=== PATIENT | female | born 1955 | race Caucasian/White ===

== ENCOUNTER 2020-01-21 11:58 | Outpatient (CLI) | payer MEDICARE, SELFPAY ==
--- NOTE | ~2020-01-21 | US_ITS ---
EXAMINATION: US carotid duplex BI DATE: 01/21/2020 12:37 INDICATION: Left carotid bruit. TECHNIQUE: Grayscale, color Doppler, and pulsed Doppler images of the cervical carotid arteries were obtained. The degree of vessel stenosis is placed in one of the following categories: normal, <50%, 5 0-69%, >=70% but less than near-occlusion, near-occlusion, or total occlusion. Note that percent sten osis relative to normal distal artery lumen diameter is indirectly measured from velocity measurement s as described by Akin, et al. Radiology 2003; 229:340-346. COMPARISON: Ultrasound 07/19/2016 FINDINGS: RIGHT: The right common carotid artery (CCA) peak systolic velocity (PSV) is 70 cm/s. The right internal car otid artery (ICA) PSV is 51 cm/s. The right ICA end-diastolic velocity (EDV) is 18 cm/s. The right IC A/CCA PSV ratio is 0.7. Grayscale and color Doppler images yield an estimate of <50% diameter reducti on from plaque in the ICA. There is antegrade flow in the right vertebral artery. LEFT: The left CCA PSV is 94 cm/s. The left ICA PSV is 52 cm/s. The left ICA EDV is 17 cm/s. The left ICA/C CA PSV ratio is 0.6. Grayscale and color Doppler images yield an estimate of <50% diameter reduction from plaque in the ICA. There is antegrade flow in the left vertebral artery. IMPRESSION: 1. <50% stenosis in the right internal carotid artery. 2. <50% stenosis in the left internal carotid artery. Reviewed, dictated and finalized at location A. [employer]
== END 2020-01-21 11:59 | disposition home or self-care (01) ==
LOC: ANHIMG 12:05
PROVIDERS: PCP Emergency Medicine; Visit Provider Emergency Medicine
DX: R09.89 Other specified symptoms and signs involving the circulatory and respiratory systems (principal); I65.23 Occlusion and stenosis of bilateral carotid arteries
CPT/HCPCS: 93880

== ENCOUNTER 2020-10-25 08:41 | Outpatient (NON) | payer MEDICARE, SELFPAY ==
[2020-10-25 18:53] LABS: SARS-CoV-2 RNA PCR Negative
== END 2020-10-25 08:42 ==
PROVIDERS: PCP Emergency Medicine; Visit Provider Emergency Medicine
DX: R50.9 Fever, unspecified (principal); Z20.828 Contact with and (suspected) exposure to other viral communicable diseases
CPT/HCPCS: 87635; C9803; U0003

== ENCOUNTER 2021-06-06 10:25 | Emergency (ER) | payer MEDICARE, SELFPAY ==
--- NOTE | ~2021-06-06 | XR_ITS ---
EXAMINATION: XR tibia fibula LT 2V INDICATION: Left lower leg and foot swelling TECHNIQUE: Two views of the left tibia and fibula are obtained. COMPARISON: None available FINDINGS: There is widespread soft tissue calcification of the leg. The bones are osteopenic which li mits the sensitivity for fracture however none is seen. There is soft tissue swelling surrounding the ankle. IMPRESSION: 1. Ankle soft tissue swelling without acute osseous abnormality identified, sensitivity limited by os teopenia. Reviewed, dictated and finalized at location B. IMPRESSION: 1. Ankle soft tissue swelling without acute osseous abnormality identified, sen sitivity limited by osteopenia.
--- NOTE | ~2021-06-06 | XR_ITS ---
EXAMINATION: XR foot LT min 3V DATE: 06/06/2021 11:06 INDICATION: Left foot swelling TECHNIQUE: Dorsoplantar, lateral, and 2 oblique views of the left foot were obtained. COMPARISON: None. FINDINGS: There is soft tissue swelling of the foot and ankle. The bones are osteopenic which limits the sensitivity for fracture however none is seen. There appears to be an old healed fracture of the fifth metatarsal shaft. Mild polyarticular osteoarthritis is noted. IMPRESSION: 1. Foot and ankle soft tissue swelling without acute osseous abnormality identified, sensitivity limi efren by osteopenia. Reviewed, dictated and finalized at location B. IMPRESSION: 1. Foot and ankle soft tissue swelling without acute osseous abnormality identi fied, sensitivity limited by osteopenia.
[2021-06-06 10:39] VITALS: BP 130/66; PULSE 96; RESP 18; TEMP 36.4; O2SAT 98
--- NOTE | 2021-06-06 10:58 | ED.GENADULT ---
HPI - General Adult General Chief complaint: Extremity Injury, Lower Stated complaint: left foot Time Seen by Provider: 06/06/21 10:45 Source: patient and RN notes reviewed Mode of arrival: ambulatory (with walker) Limitations: no limitations History of Present Illness HPI narrative: 66-year-old female presents with complaints of redness, warmth, tenderness, and swelling to left lower leg and foot for the past 7 days. ?Pamella reports increasing redness, swelling, and pain over the past 48-72 hours. ?Unable to see PMD today. ?Clean area without relief. Denies radiation of tenderness, redness, or swelling. ?Exacerbating factors consist of open areas throughout the foot. Open areas with intermittent drainage. Denies fever or chills. ?Denies nausea, vomiting, and abdominal pain. Tolerating liquids well. ?Remains active. ?The patient reports she has not been diagnosed with COVID-19. ?The patient reports she is not waiting for the results of a COVID-19 lab test. The patient reports she does not have weakness, fatigue, or myalgia. ?The patient reports she does not have a new or worsening cough or shortness of breath. ?The patient reports she does not have any rhinorrhea, congestion, loss of taste, sore throat, and diarrhea. ?Denies recent traveling. Denies concerns for COVID-19 or exposures. ?At this time, the patient is not suspected of having COVID-19. Some parts of this dictation were generated by voice recognition software and may contain typographical and/or grammatical inaccuracies. Related Data Home Medications Medication Instructions Recorded Confirmed cholecalciferol (vitamin D3) 50 2,000 unit PO DAILY 10/03/19 06/13/21 mcg (2,000 unit) capsule cyanocobalamin (vitamin B-12) 1,000 mcg PO DAILY 10/03/19 06/13/21 1,000 mcg tablet atorvastatin 20 mg PO DAILY 06/06/21 06/13/21 duloxetine 60 mg PO DAILY 06/06/21 06/13/21 levothyroxine 25 mcg PO DAILY 06/06/21 06/13/21 metoprolol succinate 25 mg PO DAILY 06/06/21 06/13/21 mirtazapine 15 mg PO DAILY 06/06/21 06/13/21 pantoprazole 40 mg PO DAILY 06/06/21 06/13/21 aspirin 81 mg PO DAILY 06/13/21 06/13/21 escitalopram oxalate 10 mg PO DAILY 06/13/21 06/13/21 mupirocin 1 applic TOPICAL BID 06/13/21 06/13/21 Allergies Allergy/AdvReac Type Severity Reaction Status Date / Time hydromorphone Allergy Intermediate Confusion Verified 06/12/21 21:32 Review of Systems Review of Systems: Narrative: CONSTITUTIONAL: Denies fever, chills, sweats. EYES: Denies visual changes, redness, discharge. ENT: Denies rhinorrhea, congestion, sore throat, otalgia. CARDIOVASCULAR: Denies chest pain, palpitations, edema. RESPIRATORY: Denies dyspnea, wheezing, cough. GASTROINTESTINAL: Denies abdominal pain, nausea, vomiting, diarrhea. GENITOURINARY: Denies dysuria, hematuria, abnormal discharge. SKIN: Complaints of redness, swelling, warmth, tenderness, open area, and intermittent drainage to left lower leg and foot. MUSCULOSKELETAL: Denies acute back pain, joint pain, or myalgia. NEUROLOGIC: Denies numbness or focal weakness. PSYCHIATRIC: Denies anxiety or depression. All systems reviewed & are unremarkable except as noted in HPI and below. [facility] Past Medical History Medical History Bilateral carotid bruits CVA (cerebral vascular accident) X3 Depression GERD (gastroesophageal reflux disease) HLD (hyperlipidemia) HTN (hypertension) Hypothyroidism (acquired) Insomnia Obese Post-menopausal Sarcoidosis Sarcoidosis of central nervous system Tachycardia Vitamin D deficiency Surgical History Surgical History History of cholecystectomy History of gastric bypass Family History Family History Father Family history of cardiovascular disease, Onset Age: 78 Mother Carcinoma of colon, Onset Age: 41
== END 2021-06-06 12:02 | disposition home or self-care (01) ==
PROVIDERS: Emergency Provider Nurse Practitioner Family; PCP Emergency Medicine
DX: L03.116 Cellulitis of left lower limb (principal); L03.032 Cellulitis of left toe; Z86.73 Personal history of transient ischemic attack (TIA), and cerebral infarction without residual deficits; F32.9 Major depressive disorder, single episode, unspecified; E78.5 Hyperlipidemia, unspecified; I10 Essential (primary) hypertension; E03.9 Hypothyroidism, unspecified; E66.9 Obesity, unspecified; Z68.30 Body mass index [BMI] 30.0-30.9, adult; Z95.1 Presence of aortocoronary bypass graft
CPT/HCPCS: 73590; 73630; 99214; G0463

== ENCOUNTER 2021-06-12 21:15 | Observation (INO) | payer MEDICARE, SELFPAY ==
--- NOTE | ~2021-06-12 | XR_ITS ---
EXAMINATION: XR chest 1V 06/12/2021 22:28 INDICATION: Status post fall. Facial droop. History of CVA. PROCEDURE: PA and lateral views of the chest COMPARISON: 07/18/2016 FINDINGS: The lungs are clear. The cardiomediastinal silhouette is within normal limits. There are no pleural effusions. There is no pneumothorax suspected. IMPRESSION: 1: NO ACUTE CARDIOPULMONARY DISEASE. Reviewed, dictated and finalized at location A.
--- NOTE | ~2021-06-12 | CT_ITS ---
EXAMINATION: CT brain wo con DATE: 06/12/2021 22:04 INDICATION: Aphasia. Facial droop. TECHNIQUE: Computed tomography (CT) of the head was performed without intravenous contrast. The dose- length product was 605.33 mGy-cm. COMPARISON: CT dated 07/18/2016 FINDINGS: Generalized atrophy. Chronic left frontal lobe infarction with encephalomalacia. Chronic ri ght lacunar and bilateral cerebellar infarctions. No ventriculomegaly or midline shift. Basilar ciste rns are patent. There are scattered mild periventricular and subcortical white matter changes, most l ikely related to small vessel ischemic disease (microangiopathy). There is intracranial atheroscleros is. Paranasal sinuses and mastoids are pneumatized. IMPRESSION: 1. No acute intracranial abnormality. 2: Chronic left frontal lobe, right lacunar and bilateral cerebellar infarctions. Reviewed, dictated and finalized at location A. IMPRESSION: 1. No acute intracranial abnormality. 2: Chronic left frontal lobe, right lacunar and bilateral cerebellar infarctio ns.
--- NOTE | ~2021-06-12 | XR_ITS ---
XR shoulder RT min 2V 06/12/2021 22:29 Indication: Right shoulder pain Procedure: 5 views of the right shoulder Comparison: No prior studies for comparison. Findings: There is polyarticular osteoarthritis. Osteopenia. There is probable rotator cuff tear. No acute fracture or traumatic malalignment. Visualized lung parenchyma is unremarkable. Impression: 1: No acute cardiopulmonary disease. Reviewed, dictated and finalized at location A. Impression: 1: No acute cardiopulmonary disease.
--- NOTE | ~2021-06-12 | US_ITS ---
EXAMINATION: US carotid duplex BI DATE: 06/14/2021 09:42 INDICATION: CVA protocol TECHNIQUE: Grayscale, color Doppler, and pulsed Doppler images of the cervical carotid arteries were obtained. The degree of vessel stenosis is placed in one of the following categories: normal, <50%, 5 0-69%, >=70% but less than near-occlusion, near-occlusion, or total occlusion. Note that percent sten osis relative to normal distal artery lumen diameter is indirectly measured from velocity measurement s as described by Akin, et al. Radiology 2003; 229:340-346. Notes: Normal: Peak systolic velocity <125 centimeters/sec and no plaque <50%. Peak systolic velocity <125 ( EDV <40; ICA/CCA PSV ratio <2.0; used these factors only a tandem lesions or low cardiac output or co ntralateral disease) 50-69 %: PSV 125-230 (EDV 40-100; ratio 2-4) >= 70% but less than near occlusion: PSV greater than 230 (EDV > 100; ratio> 4.0) Near Occlusion: PSV that is variable; markedly narrowed lumen Occlusion: Absent flow on color/spectral Doppler and no lumen on andrews scale. COMPARISON: None. FINDINGS: RIGHT: The right common carotid artery (CCA) peak systolic velocity (PSV) is 72 cm/s. The right internal car otid artery (ICA) PSV is 64 cm/s. The right ICA end-diastolic velocity (EDV) is 24 cm/s. The right IC A/CCA PSV ratio is 0.9. The external carotid artery (ECA) PSV is 72 cm/s. There is antegrade flow in the right vertebral artery. LEFT: The left CCA PSV is 86 cm/s. The left ICA PSV is 70 cm/s. The left ICA EDV is 22 cm/s. The left ICA/C CA PSV ratio is 0.8. The ECA PSV is 60 cm/s. There is antegrade flow in the left vertebral artery. IMPRESSION: 1. Less than 50% stenosis in the right internal carotid artery by sonographic criteria. 2. Less than 50% stenosis in the left internal carotid artery by sonographic criteria. Reviewed, dictated and finalized at location A. IMPRESSION: 1. Less than 50% stenosis in the right internal carotid artery by sonographic michael middleton. 2. Less than 50% stenosis in the left internal carotid artery by sonographic gia brandon.
--- NOTE | ~2021-06-12 | MR_ITS ---
EXAMINATION: MR brain/brain stem wo con EXAM DATE: 06/13/2021 13:17 INDICATION: Aphrasia, facial droop. TECHNIQUE: Magnetic resonance imaging (MRI) of the brain/brain stem obtained without contrast. Tristin al T1, axial diffusion, gradient echo (T2*), T1, T2, FLAIR sequences obtained. Comparison is made to prior examination from 07/19/2016. FINDINGS: Expected evolution of previously seen moderate sized left frontal lobe infarction. There is small old left cerebellar infarction and punctate old right basal ganglia lacunar infarction. There are no areas of restricted diffusion to suggest acute infarction. There is no acute hemorrhage seen on the T2*, a hemosiderin sensitive sequence. No intraparenchymal brain mass. The ventricles a re normal in size. There are no extra-axial collections. Flow voids are seen in the cerebral arteri es on the T2-weighted sequences consistent with their expected patency. Patient has had bilateral oc ular lens surgery. Soft tissue is unremarkable. IMPRESSION: 1. No acute intracranial findings. 2. Old infarctions, largest in the left frontal lobe. Reviewed, dictated and finalized at location B.
[2021-06-12 21:23] VITALS: BP 140/92; PULSE 78; RESP 18; TEMP 36.6; O2SAT 95
--- NOTE | 2021-06-12 21:49 | ECG_ITS ---
Measurements Intervals [place] Rate: 80 P: 34 NE: 169 QRS: -20 QRSD: 97 T: 8 QT: 381 QTc: 441 Interpretive Statements SINUS RHYTHM VENTRICULAR PREMATURE COMPLEX DELAYED PRECORDIAL R/S TRANSITION VOLTAGE CRITERIA FOR LVH BORDERLINE T WAVE ABNORMALITY- INFERIOR LEADS BASELINE WANDER- V4 BORDERLINE ECG Electronically Signed On 06-13-2021 8:06:21 CDT by René Lees D.O.
--- NOTE | 2021-06-12 21:52 | ED.FALL ---
HPI - Fall General Chief Complaint: Fall Stated Complaint: ground level fall/ facial droop Time Seen by Provider: 06/12/21 21:27 Source: patient and RN notes reviewed Mode of arrival: EMS Limitations: other History of Present Illness HPI Narrative: This is a 66 year old female with history of multiple CVA with residual aphasia who presents for evaluation of a fall. She states she was trying to walk from her chair to her table. She was turning around when she fell for now reason. She was able to get back in her chair. She thinks she may have hit her head but denies LOC. She denies dizziness, nausea, vomiting, focal weakness, numbness tingling, headache, chest pain, sob, abdominal pain. EMS thought patient has mild right facial droop. Patient reports she normally walks with walker. She is currently on antibiotics for chronic left leg wound with chronic cellulitis. She was prescribed clindamycin 3 days ago. Related Data Home Medications Medication Instructions Recorded Confirmed cholecalciferol (vitamin D3) 50 2,000 unit PO DAILY 10/03/19 06/13/21 mcg (2,000 unit) capsule cyanocobalamin (vitamin B-12) 1,000 mcg PO DAILY 10/03/19 06/13/21 1,000 mcg tablet atorvastatin 20 mg PO DAILY 06/06/21 06/13/21 duloxetine 60 mg PO DAILY 06/06/21 06/13/21 levothyroxine 25 mcg PO DAILY 06/06/21 06/13/21 metoprolol succinate 25 mg PO DAILY 06/06/21 06/13/21 mirtazapine 15 mg PO DAILY 06/06/21 06/13/21 pantoprazole 40 mg PO DAILY 06/06/21 06/13/21 aspirin 81 mg PO DAILY 06/13/21 06/13/21 escitalopram oxalate 10 mg PO DAILY 06/13/21 06/13/21 mupirocin 1 applic TOPICAL BID 06/13/21 06/13/21 Allergies Allergy/AdvReac Type Severity Reaction Status Date / Time hydromorphone Allergy Intermediate Confusion Verified 06/12/21 21:32 Review of Systems Review of Systems: All systems reviewed & are unremarkable except as noted in HPI and below [facility] Past Medical History Medical History (Updated 06/13/21 @ 07:33 by Bessy Marrero MD) Bilateral carotid bruits CVA (cerebral vascular accident) X3 Depression GERD (gastroesophageal reflux disease) HLD (hyperlipidemia) HTN (hypertension) Hypothyroidism (acquired) Insomnia Obese Post-menopausal Sarcoidosis Tachycardia Vitamin D deficiency Surgical History Surgical History History of cholecystectomy History of gastric bypass Family History Family History Father Family history of cardiovascular disease, Onset Age: 78 Mother Carcinoma of colon, Onset Age: 41 Social History Social History (Updated 06/13/21 @ 05:54 by Irina Pagan DO) Social History: Primary care physician: Dr. Vicky Louise Code status: full code healthcare power of collections attorney: Chad Beard Smoking status: Never smoker Second hand tobacco smoke exposure: Yes Alcohol intake: former Substance use: never Additional living arrangements comments: She is and lives alone. Her daughter comes and checks on her frequently. She ambulates with a walker. 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 Gender identity (if verbalized by the patient): Female Spiritual care concerns: No Exam Const: General: no acute distress Orientation/consciousness: patient oriented x3 HENMT: Head: normocephalic Face and sinus: normal facial exam, sinuses nontender and face symmetric Mouth: Yes lip normal, Yes oropharynx normal and Yes dry mucous membranes Eyes: Pupils: Equal, round and reactive pupils present EOM: EOMs intact bilaterally Neck: Neck: normal visual inspection Chest: Chest palpation & inspection: normal inspection of the chest Resp: Effort & Inspection: normal respiratory effort and no retractions Auscultation: clear to auscultation bilaterally Cardio: Rate: regular
[2021-06-12 22:41] LABS: Basophils Absolute Auto 0.1 K/mm3 (0.0-0.1); Basophils Percent Auto 0.4 % (0.2-1.2); Eosinophils Absolute Auto 0.2 K/mm3 (0-0.3); Eosinophils Percent Auto 1.3 % (0-4.4); Hematocrit 34.1 % (37.0-47.0); Hemoglobin 10.2 g/dL (12.0-15.0); Immature Granulocyte Absolute 0.15 K/mm3 (0.00-0.031); Immature Granulocyte Percent A 1.2 % (0-0.5); Lymphocytes Absolute Auto 2.44 K/mm3 (0.9-3.2); Lymphocytes Percent Auto 19.3 % (18.3-44.2); Mean Corpuscular HGB Conc 29.9 g/dl (32-36); Mean Corpuscular Hemoglobin 27.2 pg (26-34); Mean Corpuscular Volume 90.9 fl (80-100); Mean Platelet Volume 9.7 fl (7.4-10.4); Monocytes Absolute Auto 0.7 K/mm3 (0.1-0.6); Monocytes Percent Auto 5.7 % (2.6-8.5); Neutrophils Absolute Auto 9.1 K/mm3 (1.3-6.7); Neutrophils Percent Auto 72.1 % (45.5-73.1); Platelet Count Result 280 k/mm3 (150-375); Red Blood Count 3.75 M/mm3 (4.2-5.4); Red Cell Distribution Width 17.3 % (11.5-14.5); White Blood Count 12.6 K/mm3 (4.5-10.0)
[2021-06-12 22:46] LABS: Alanine Aminotransferase 14 U/L (4-35); Albumin Level 3.5 g/dL (3.5-5.1); Alkaline Phosphatase 112 U/L (38-126); Anion Gap 7 mmol/L (8-16); Aspartate Amino Transferase 35 U/L (14-36); Bilirubin,Total 0.5 mg/dL (0.2-1.3); Blood Urea Nitrogen 18 mg/dL (7-17); Calcium 9.2 mg/dL (8.4-10.2); Carbon Dioxide 24 mmol/L (22-30); Chloride 109 mmol/L (98-107); Estimated CRCL calculation 53 ml/min; Estimated Glomerular Filt Rate > 60; Glucose 96 mg/dL (65-110); Sodium 140 mmol/L (137-145)
[2021-06-12 22:47] LABS: Partial Thromboplastin Time 27.8 SECONDS (22.3-36.8); Prothrombin Time 12.9 Seconds (11.1-14.7)
[2021-06-12 22:48] VITALS: BP 156/86; PULSE 81
[2021-06-12 22:49] VITALS: BP 167/97; PULSE 84
[2021-06-12 23:02] LABS: Platelet Estimate Adequate (Adequate)
[2021-06-12 23:03] LABS: Hypochromasia 1+ (NORMAL)
[2021-06-12 23:42] LABS: Add Urine Microscopic? YES; Appearance Urine Clear (Clear); Bacteria Urine Trace /hpf; Bilirubin Urine Negative (Negative); Color Urine Yellow (Yellow); Glucose Urine UA Negative (Negative); Ketones Urine Negative (Negative); Leukocyte Esterase Ur 3+ LEU/UL (Negative); Mucus Urine Rare /lpf; Nitrate Urine Negative (Negative); Protein Urine Negative (Negative); Specific Grav Ur 1.016 (1.001-1.035); Squamous Epithelial Cell Urine Few /hpf (Few); Transitional Epi Cells Urine Rare /hpf (None Seen); Urobilinogen Urine Negative mg/dL (<2.0); WBC Urine 31-50 /hpf
[2021-06-12 23:50] LABS: Blood Urine Negative (Negative)
[2021-06-12 23:54] VITALS: BP 139/87; PULSE 73; O2SAT 99
[2021-06-13] VITALS (10 sets, daily range): BP systolic 102–119; BP diastolic 60–71; PULSE 69–99; RESP 14–18; TEMP 36–36.6; O2SAT 96–100; BMI 30.1
--- NOTE | 2021-06-13 02:56 | ADMGEN ---
This patient, Pamella Wu, was admitted to Medical Room 250-01. Patient/family oriented to hospital policies and general routines including ID bracelet, bed and alarms, visiting hours, pain management, procedures, bathroom and other care routines, personal items, smoking policy, room service/diet, and visiting hours. Information on how to activate the Rapid Response Team has been discussed. Patient/Family are encouraged to report perceived risks to care and to ask questions if they do not understand what they are told or what they should do.
--- NOTE | 2021-06-13 05:33 | PM.IMHP ---
H&P: HPI History of Present Illness Date/Time: 06/13/21 05:33 Chief Complaint: Facial droop Narrative: history was difficult to obtain given the patient's expressive aphasia. according to a compilation of sources this 66-year-old female with history of multiple strokes, hypertension and chronic leg wounds presented to the ER after having some facial droop. The patient's daughter usually cares for the patient But she is out of town. The patient's brother spoke to the patient around 1:00 p.m. and the patient was fine. When the daughter spoke to the patient around 5:00 p.m. she was having difficulty verbalizing more than usual and was having some right facial droop. The initial call out from EMS was that the patient had had a fall. It is unclear if the patient actually had a fall or not. Either way the patient had a noncontrast CT of Head in the ER which demonstrated no acute process. she denies any headache or visual changes. She actually denies having more expressive aphasia than usual when I am talking to her. She has no facial droop at the time of my evaluation. She denies having had any episodes of confusion. She denies focal weakness numbness or tingling. In the ER she had a UA which demonstrated 3+ esterase and trace bacteria. She denies any dysuria, hematuria, increased urinary urgency or frequency. She has erythema and warmth to her left lower extremity. She reports that her extremity is slightly more red than usual and more swollen. She states that she has had a boot on her foot for the last week. She had been prescribed clindamycin by care provider on the it is unclear if she actually picked up the antibiotics at that time but she had the clindamycin again prescribed on the . She has received at least 3 days of clindamycin. obtaining history was difficult due to the patient's expressive aphasia. Review of Systems Review of Systems: Narrative: 12 systems were reviewed with pertinent positives and negatives per HPI. Except as documented in the HPI, all other systems were reviewed and are negative. [facility] Past Medical History Medical History (Updated 06/13/21 @ 06:01 by Irina Pagan DO) Bilateral carotid bruits CVA (cerebral vascular accident) X3 Depression GERD (gastroesophageal reflux disease) HLD (hyperlipidemia) HTN (hypertension) Hypothyroidism (acquired) Insomnia Obese Post-menopausal Sarcoidosis Tachycardia Vitamin D deficiency Surgical History Surgical History History of cholecystectomy History of gastric bypass Family History Family History Father Family history of cardiovascular disease, Onset Age: 78 Mother Carcinoma of colon, Onset Age: 41 Social History Social History (Updated 06/13/21 @ 05:54 by Irina Pagan DO) Social History: Primary care physician: Dr. Vicky Louise Code status: full code healthcare power of machine operator farmworker: Chad Beard Smoking status: Never smoker Second hand tobacco smoke exposure: Yes Alcohol intake: former Substance use: never Additional living arrangements comments: She is and lives alone. Her daughter comes and checks on her frequently. She ambulates with a walker. 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
[2021-06-13] MEDS: LEVOTHYROXINE SODIUM 25 MCG TABLET PO (06:08)
[2021-06-13] MEDS: ATORVASTATIN 20 MG TABLET PO (08:31)
[2021-06-13] MEDS: DULoxetine HCL 60 MG CAPSULE.DR PO (08:31)
[2021-06-13] MEDS: ASPIRIN 81 MG ENTERIC TABLET PO (08:31)
[2021-06-13] MEDS: CYANOCOBALAMIN 1,000 MCG TABLET 1000 MCG PO (08:31)
[2021-06-13] MEDS: CHOLECALCIFEROL 1,000 UNITS TABLET 2000 UNITS PO (08:31)
[2021-06-13] MEDS: ESCITALOPRAM OXALATE 10 MG TABLET PO (08:31)
[2021-06-13] MEDS: CLOPIDOGREL BISULFATE 75 MG TABLET PO (08:31)
[2021-06-13] MEDS: PANTOPRAZOLE 40 MG TABLET PO (08:32)
[2021-06-13] MEDS: MIRTAZAPINE 15 MG TABLET PO (08:32)
[2021-06-13] MEDS: METOPROLOL SUCCINATE EXT REL 25 MG TABCR PO (08:32)
[2021-06-13] MEDS: MUPIROCIN 2% OINT 22 GM TUBE 1 APPLIC TOPICAL ×2 (08:33→18:28)
--- NOTE | 2021-06-13 17:15 | PM.IMPN ---
Progress Note: A&P Assessment and Plan (1) CVA (cerebral vascular accident): Qualifiers: CVA mechanism: unspecified Qualified Code(s): I63.9 - Cerebral infarction, unspecified Code(s): I63.9 - Cerebral infarction, unspecified Status: Acute Assessment and Plan: the patient may have had a recurrent CVA. MRI of the brain in a.m. No acute findings, old infarctions largest in the left frontal lobe The patient had relatively recent carotid Dopplers 01/2020 will repeat in the morning will continue to monitor on telemetry to monitor for possible cardiac rhythm issues that could be contributing to the patient's multiple CVAs. will continue patient's home Plavix and aspirin. patient also might need a echocardiogram since she was a on the Plavix and the aspirin. Neurological consult thank very recommendations (2) Left leg cellulitis: Code(s): L03.116 - Cellulitis of left lower limb Status: Acute Assessment and Plan: The patient reportedly has some chronic left lower extremity cellulitis but the leg feels markedly warm to touch and she has leukocytosis. She had been on clindamycin for 3 days without improvement in her symptoms. Will place patient on Zosyn and continue to monitor. Will repeat CBC with a.m. labs. (3) Bacteriuria with pyuria: Code(s): R82.71 - Bacteriuria; R82.81 - Pyuria Status: Acute Assessment and Plan: The patient denies having any urinary symptoms. She did receive 1 dose of Rocephin in the ER. the patient is on antibiotic therapy for her lower extremity cellulitis. UTI is less likely given the patient is not having symptoms. Time Spent With Patient Time with patient: 25 - 35 minutes Subjective Date/time seen: 06/13/21 16:15 Interval history: patient is a 66-year-old female with a past medical history of CVA, hyperlipidemia, hypertension, who presented to the ED with right-sided facial droop. Patient stated this was a new finding however she also stated that she feels like it has resolved. She has been able to walk back and forth to the to the bathroom and she said that she is not weak on 1 side or the other. She also feels like her aphasia has gotten better and she is able to pick the words that she is looking for. She denies chest pain, shortness of breath, nausea, vomiting, diarrhea, constipation, sweats, fevers, chills. Review of Systems Review of Systems: All systems reviewed & are unremarkable except as noted in HPI and below Exam Const: General: cooperative, healthy appearing, comfortable, no acute distress, well developed, alert and awake Nutritional Appearance: well nourished Orientation/consciousness: oriented to person, oriented to place, oriented to time and patient oriented x3 Limitations: no limitations HENMT: Head: normal to inspection Ears: hearing grossly normal bilaterally General nose exam: Normal external nose present Mouth: Yes Normal oral and palatal mucosa present, Yes lip normal and Yes tongue normal Teeth and gingiva: abnormal tooth and associated gingiva and poor dentition Eyes: General: appearance normal, both eyes and all related structures Neck: Neck: normal visual inspection, full ROM, trachea midline and supple Chest: Chest palpation & inspection: normal inspection of the chest Resp: Effort & Inspection: normal respiratory effort and able to speak in complete sentences Auscultation: clear to auscultation bilaterally Cardio: Jugular venous distension: no JVD Rate: regular rate Rhythm: regular rhythm Heart sounds: S1 normal heart sound present and S2 normal heart sound present Peripheral pulses: Peripheral pulses 2+ throughout GI: Inspection: normal to inspection GI Palp: Yes Soft to palpation and No Tenderness to palpation present (GI) Auscultation: normal bowel sounds Skin: General skin exam: normal color and no rashes or lesions noted Lesions: no lesions Jered
--- NOTE | 2021-06-13 17:26 | PC.NURSE ---
SUNIL ORTEGA NOT GIVEN PT WAS OFF THE FLOOR IN MRI THEN IV WENT BAD AND UNABLE TO GET NEW IV SITE AT THIS TIME.
[2021-06-14] VITALS (9 sets, daily range): BP systolic 110–113; BP diastolic 61–72; PULSE 68–92; RESP 16; TEMP 35.9–36.5; O2SAT 96–100
--- NOTE | 2021-06-14 | ECHO_ITS ---
Patient Info Name: Pamella Wu Age: 66 years : 1955 Gender: Female Ht: 63 in Wt: 170 lbs BSA: 1.88 m2 HR: 84 bpm BP: 113 / 61 mmHg Exam Date: 06/14/2021 9:38 AM Exam Location: 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 Strain analysis performed. Summary 1. Left ventricular chamber dimension is normal. 2. Left ventricular systolic function is normal, estimated at 65-70%. 3. There is mildly increased left ventricular wall thickness. 4. The left ventricular diastolic function is grade I diastolic dysfunction. 5. E/e' 9 is minimally elevated. 6. Global longitudinal strain is normal at -20.6%. 7. Left atrial chamber dimension is mildly enlarged. 8. The mitral valve has moderately calcified annulus. 9. There is mild mitral valve regurgitation. 10. No pulmonary hypertension, estimated pulmonary arterial systolic pressure is 31 mmHg. 11. There is trace pulmonic regurgitation. Left Ventricle E/e' 9 is minimally elevated. Global longitudinal strain is normal at -20.6%. Left ventricular chamber dimension is normal. Left ventricular systolic function is normal, estimated at 65-70%. There is mildly increased left ventricular wall thickness. The left ventricular diastolic function is grade I diastolic dysfunction. Right Ventricle Right ventricular systolic function is normal and with normal TAPSE 2.0 cm. Right ventricular chamber dimension is normal. Left Atria Left atrial chamber dimension is mildly enlarged. Right Atria Right atrial chamber dimension is normal. Atrial Septum Agitated saline injection with and without valsalva maneuver opacified right cardiac chambers without shunt to left cardiac chambers. Intact interatrial septum visualized by agitated saline imaging. Aortic Valve The aortic valve is trileaflet. There is no aortic valve stenosis. There is no aortic valve regurgitation. Pulmonic Valve There is trace pulmonic regurgitation. Mitral Valve The mitral valve has moderately calcified annulus. There is no mitral valve stenosis. There is mild mitral valve regurgitation. Tricuspid Valve There is no tricuspid valve regurgitation. No pulmonary hypertension, estimated pulmonary arterial systolic pressure is 31 mmHg. Pericardium/Pleural There is no pericardial effusion. Inferior Vena Cava Normal inferior vena cava with >50% collapse upon inspiration consistent with normal right atrial pressure, 5 mmHg. Aorta The aortic root size at the sinus of Valsalva is normal. Left Ventricular Outflow Tract Name Value Normal LVOT 2D LVOT Diameter 2.0 cm LVOT Doppler LVOT Peak Gradient 4 mmHg LVOT Mean Gradient
[2021-06-14] MEDS: LEVOTHYROXINE SODIUM 25 MCG TABLET PO (05:37)
[2021-06-14 05:55] LABS: Basophils Absolute Auto 0.1 K/mm3 (0.0-0.1); Basophils Percent Auto 0.7 % (0.2-1.2); Eosinophils Absolute Auto 0.2 K/mm3 (0-0.3); Eosinophils Percent Auto 2.4 % (0-4.4); Hematocrit 32.6 % (37.0-47.0); Hemoglobin 9.8 g/dL (12.0-15.0); Immature Granulocyte Absolute 0.05 K/mm3 (0.00-0.031); Immature Granulocyte Percent A 0.7 % (0-0.5); Lymphocytes Absolute Auto 2.59 K/mm3 (0.9-3.2); Lymphocytes Percent Auto 34.2 % (18.3-44.2); Mean Corpuscular HGB Conc 30.1 g/dl (32-36); Mean Corpuscular Hemoglobin 27.5 pg (26-34); Mean Corpuscular Volume 91.6 fl (80-100); Mean Platelet Volume 9.5 fl (7.4-10.4); Monocytes Absolute Auto 0.6 K/mm3 (0.1-0.6); Monocytes Percent Auto 8.1 % (2.6-8.5); Neutrophils Absolute Auto 4.1 K/mm3 (1.3-6.7); Neutrophils Percent Auto 53.9 % (45.5-73.1); Platelet Count Result 255 k/mm3 (150-375); Red Blood Count 3.56 M/mm3 (4.2-5.4); Red Cell Distribution Width 17.3 % (11.5-14.5); White Blood Count 7.6 K/mm3 (4.5-10.0)
[2021-06-14 06:39] LABS: Alanine Aminotransferase 12 U/L (4-35); Albumin Level 3.1 g/dL (3.5-5.1); Alkaline Phosphatase 90 U/L (38-126); Anion Gap 6 mmol/L (8-16); Aspartate Amino Transferase 24 U/L (14-36); Bilirubin,Total 0.4 mg/dL (0.2-1.3); Blood Urea Nitrogen 13 mg/dL (7-17); Calcium 8.9 mg/dL (8.4-10.2); Carbon Dioxide 27 mmol/L (22-30); Chloride 108 mmol/L (98-107); Estimated CRCL calculation 47 ml/min; Estimated Glomerular Filt Rate 55; Glucose 87 mg/dL (65-110); Potassium 4.2 mmol/L (3.4-5.0); Sodium 141 mmol/L (137-145)
[2021-06-14] MEDS: PANTOPRAZOLE 40 MG TABLET PO (09:42)
[2021-06-14] MEDS: ATORVASTATIN 20 MG TABLET PO (09:42)
[2021-06-14] MEDS: CYANOCOBALAMIN 1,000 MCG TABLET 1000 MCG PO (09:42)
[2021-06-14] MEDS: ASPIRIN 81 MG ENTERIC TABLET PO (09:42)
[2021-06-14] MEDS: MIRTAZAPINE 15 MG TABLET PO (09:43)
[2021-06-14] MEDS: METOPROLOL SUCCINATE EXT REL 25 MG TABCR PO (09:43)
[2021-06-14] MEDS: CHOLECALCIFEROL 1,000 UNITS TABLET 2000 UNITS PO (09:43)
[2021-06-14] MEDS: CLOPIDOGREL BISULFATE 75 MG TABLET PO (09:43)
[2021-06-14] MEDS: ESCITALOPRAM OXALATE 10 MG TABLET PO (09:43)
[2021-06-14] MEDS: DULoxetine HCL 60 MG CAPSULE.DR PO (09:44)
[2021-06-14] MEDS: MUPIROCIN 2% OINT 22 GM TUBE 1 APPLIC TOPICAL ×2 (09:44→16:26)
--- NOTE | 2021-06-14 15:52 | PM.DS ---
DS: Admitting Diagnosis Admitting Diagnosis CVA DS: Discharge Diagnosis Discharge Diagnosis (1) CVA (cerebral vascular accident): Qualifiers: CVA mechanism: unspecified Qualified Code(s): I63.9 - Cerebral infarction, unspecified Code(s): I63.9 - Cerebral infarction, unspecified Status: Acute Assessment and Plan: the patient may have had a recurrent CVA. MRI of the brain in a.m. No acute findings, old infarctions largest in the left frontal lobe The patient had relatively recent carotid Dopplers 01/2020 will repeat in the morning which showed <50% stenosed will continue to monitor on telemetry to monitor for possible cardiac rhythm issues that could be contributing to the patient's multiple CVAs. will continue patient's home Plavix and aspirin. patient also might need a echocardiogram since she was a on the Plavix and the aspirin. Neurological consult thank very recommendations (2) Left leg cellulitis: Code(s): L03.116 - Cellulitis of left lower limb Status: Acute Assessment and Plan: The patient reportedly has some chronic left lower extremity cellulitis but the leg feels markedly warm to touch and she has leukocytosis. She had been on clindamycin for 3 days without improvement in her symptoms. Will place patient on Zosyn and continue to monitor. Will repeat CBC with a.m. labs. (3) Bacteriuria with pyuria: Code(s): R82.71 - Bacteriuria; R82.81 - Pyuria Status: Acute Assessment and Plan: The patient denies having any urinary symptoms. She did receive 1 dose of Rocephin in the ER. the patient is on antibiotic therapy for her lower extremity cellulitis. UTI is less likely given the patient is not having symptoms. DS: Summary Hospital Course Hospital Course: patient is a 66-year-old female with past medical history of CVA, hyperlipidemia, hypertension who presented to the ED with right-sided facial droop and increased weakness. Upon presentation patient was also aphasic and could not figure out the words to say. Since admission she has been doing a lot better MRI of the brain showed no acute findings however did show the old infarctions with the largest being in her left frontal lobe. 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 She was also on Plavix and aspirin from her old stroke. She also had an echocardiogram that shows an EF of 65-70% and grade 1 diastolic dysfunction. Carotid ultrasound was also less than 50% stenosis bilateral. Patient will also need to get a carrier packer within the week. And follow-up with her primary physician about results and next steps. I discussed this with her and her sister in the room. Everyone verbalized understanding Status at Discharge Functional status at discharge: independent ambulation Overall status at discharge: patient is progressing back to baseline Time Spent with Patient Time attestation: Total time spent providing and/or coordinating discharge services: 48 minutes Time spent: Greater than 30 minutes Exam Const: General: cooperative, healthy appearing, comfortable, no acute distress, well developed, alert and awake Nutritional Appearance: well nourished Orientation/consciousness: oriented to person, oriented to place, oriented to time and patient oriented x3 Limitations: no limitations HENMT: Head: normal to inspection Ears: hearing grossly normal bilaterally General nose exam: Normal external nose present Mouth: Yes Normal oral and palatal mucosa present, Yes lip normal and Yes tongue normal Teeth and gingiva: abnormal tooth and associated gingiva and poor dentition Eyes: General: appearance normal, both eyes and all related structures Neck: Neck: normal visual inspection, full ROM, trachea midline and supple Chest: Chest palpation & inspection: normal inspection of the chest Resp: Effort & Inspection: normal respiratory effort and able to
== END 2021-06-14 17:50 | disposition home or self-care (01) ==
LOC: ANHED 06-13 01:36 → ANH2MED 06-13 02:29
PROVIDERS: Admitting Provider Internal Medicine; Emergency Provider General Practice; PCP Family Medicine; Visit Provider Internal Medicine
DX: I63.9 Cerebral infarction, unspecified (principal); L03.116 Cellulitis of left lower limb; R82.71 Bacteriuria; R29.810 Facial weakness; I69.320 Aphasia following cerebral infarction; W18.39XA Other fall on same level, initial encounter; I10 Essential (primary) hypertension; I34.0 Nonrheumatic mitral (valve) insufficiency; E78.5 Hyperlipidemia, unspecified; E03.9 Hypothyroidism, unspecified; E55.9 Vitamin D deficiency, unspecified; F32.9 Major depressive disorder, single episode, unspecified; E66.9 Obesity, unspecified; Z68.30 Body mass index [BMI] 30.0-30.9, adult; Z98.84 Bariatric surgery status; Z79.02 Long term (current) use of antithrombotics/antiplatelets; Z79.82 Long term (current) use of aspirin
CPT/HCPCS: 36415; 70450; 70551; 71045; 73030; 80053; 81001; 85025; 85610; 85730; 87077; 87086; 87186; 93005; 93306; 93880; 96365; 96366; 96367; 96375; 97161; 99285; A9270; G0378; J0696; J2543

== ENCOUNTER 2021-08-03 14:56 | Outpatient (CLI) | payer MEDICARE, SELFPAY ==
--- NOTE | ~2021-08-03 | US_ITS ---
EXAMINATION: US art doppler w press LE BI DATE: 08/03/2021 15:52 INDICATION: Peripheral vascular disease TECHNIQUE: Segmental pressures and plethysmographic and Doppler waveforms of the brachial and lower e xtremity arteries were obtained. COMPARISON: None. FINDINGS: Right and left brachial artery pressures of 119 mm Hg and 127 mm Hg, respectively, are concordant (no rmal difference <= 30 mmHg). The right and left high-thigh pressure indices are 1.34 and 1.26, respec tively (normal > 1.2). The right ankle-brachial index (RACHEL) is 1.17 (normal >= 0.9-1). The right great toe-brachial index (T BI) is 0.09 (normal >= 0.6-0.8). The right lower extremity segmental pressure gradients are normal (n ormal gradients <= 20-30 mmHg between adjacent levels on the same leg or the same levels on the two l egs). Arterial waveforms are triphasic at the right common femoral artery and biphasic in the more di stal arteries with brisk systolic upstrokes throughout. The left RACHEL is 1.02. The left TBI is 0.83. The left lower extremity segmental pressure gradients are normal. Arterial waveforms are biphasic with brisk systolic upstrokes throughout. IMPRESSION: 1. Arterial occlusive disease to the right lower limb with severely decreased right TBI but normal ri ght RACHEL suggesting this may occur below the level of the right ankle. 2. No significant arterial occlusive disease to the left lower limb with normal left RACHEL and TBI. Reviewed, dictated and finalized at location A. IMPRESSION: 1. Arterial occlusive disease to the right lower limb with severely decreased r ight TBI but normal right RACHEL suggesting this may occur below the level of the right ankle. 2. No significant arterial occlusive disease to the left lower limb with normal left RACHEL and TBI.
--- NOTE | ~2021-08-03 | US_ITS ---
US venous doppler [facility] DATE: 08/03/2021 15:51 INDICATION: Swelling of the lower extremities TECHNIQUE: Real-time and color flow imaging and Doppler analysis of the veins of the lower extremitie s COMPARISON: 07/19/2016 venous duplex examination of the left leg FINDINGS: There is spontaneous and phasic flow and normal augmentation and color flow signal and norm al compression of the deep veins of both legs. IMPRESSION: Negative examination; no evidence of deep venous thrombosis Reviewed, dictated and finalized at Location [facility]. Reviewed, dictated and finalized at location A.
== END 2021-08-03 14:57 | disposition home or self-care (01) ==
PROVIDERS: PCP Family Medicine; Visit Provider Family Medicine
DX: R60.9 Edema, unspecified (principal); I73.9 Peripheral vascular disease, unspecified
CPT/HCPCS: 93923; 93970

== ENCOUNTER 2023-04-02 01:50 | Day surgery (SDC) | payer MEDICARE, SELFPAY ==
[2023-03-20 13:29] VITALS: BMI 25.7
--- NOTE | 2023-04-01 20:48 | PM.HPGS ---
History of Present Illness History of Present Illness Consent: Risks, benefits, and alternatives have been discussed and questions answered. Patient agrees to proceed with procedure. Chief complaint: neoplasm screening Narrative: Pamella Wu is a 68 year old female ?with hx? of CVA, HTN, - s/p gastric bypass in 2006.?Hx of? 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 ? Hx of Non-Hodgkin's lymphoma? with R kidney involvement dx-2014 . Finished chemo- released from oncology.? Hx of 2? CVA with expressive aphasia and cognitive impairment. Hx of iliac vein and LLE DVT, complicated by small subdural hematoma in 2014. Colonoscopy 2017- need to repeat in 5 years( poor prep) Review of Systems Review of Systems: All systems reviewed & are unremarkable except as noted in HPI and below PMFSH Past Medical History Medical History Bilateral carotid bruits CVA (cerebral vascular accident) X3 CVA, old, dysarthria Depression GERD (gastroesophageal reflux disease) HLD (hyperlipidemia) HTN (hypertension) Hyperglycemia Hypothyroidism (acquired) Hypothyroidism (acquired) Insomnia Insomnia Mixed hyperlipidemia Non Hodgkin's lymphoma Obese Post-menopausal Sarcoidosis Sarcoidosis Sarcoidosis of central nervous system Tachycardia Vitamin D deficiency Vitamin D deficiency Surgical History Surgical History History of cholecystectomy History of gastric bypass Family History Family History Father Family history of cardiovascular disease, Onset Age: 78 Mother Carcinoma of colon, Onset Age: 41 Social History Social History Social History: Primary care physician: Dr. Vicky Louise Code status: full code healthcare power of consumer attorney: Chad Beard Smoking status: Never smoker Second hand tobacco smoke exposure: Yes Alcohol intake: never Substance use: never Substance use type: does not use Living arrangements: alone Additional living arrangements comments: She is and lives alone. Her daughter comes and checks on her frequently. She ambulates with a walker. 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 Gender identity (if verbalized by the patient): Female Sexual Orientation (if Verbalized by the Patient): Straight or Heterosexual Spiritual care concerns: No Meds Home Medications and Allergies Home Medications Medication Instructions Recorded Confirmed Type cholecalciferol (vitamin D3) 50 2,000 unit PO DAILY 10/03/19 03/20/23 History mcg (2,000 unit) capsule (Vitamin D3) cyanocobalamin (vitamin B-12) 1,000 mcg PO DAILY 10/03/19 03/20/23 History 1,000 mcg tablet (Vitamin B-12) aspirin 81 mg tablet 81 mg PO DAILY 06/13/21 03/20/23 History alendronate 70 mg tablet (Fosamax) 70 mg PO WEEKLY #14 tabs 11/21/22 03/20/23 Rx atorvastatin 20 mg tablet See Rx Instructions .Route 11/21/22 03/20/23 Rx .COMPLEX #90 tabs losartan 100 mg tablet 100 mg PO DAILY #90 tabs 11/21/22 03/20/23 Rx metoprolol succinate 25 mg See Rx Instructions .Route 11/21/22 03/20/23 Rx tablet,extended release 24 hr .COMPLEX #90 tabs polysaccharide iron complex 150 mg See Rx Instructions .Route 11/21/22 03/20/23 Rx iron capsule .COMPLEX #30 caps levothyroxine 25 mcg tablet See Rx Instructions .Route 12/11/22 04/02/23 Rx .COMPLEX #90 tabs pantoprazole 40 mg tablet,delayed See Rx Instructions .Route 02/09/23 03/20/23 Rx release .COMPLEX #90 tabs duloxetine 60 mg capsule,delayed See Rx Instructions .Route 03/09/23 03/20/23 Rx release .COMPLEX #180 caps Allergies Allergy/AdvReac Type Severity Reaction Status Date / Time hydromorphone Allergy Intermediate Confusio
[2023-04-02 11:24] VITALS: BP 124/89; PULSE 80; RESP 18; TEMP 36.2; O2SAT 100
[2023-04-02] MEDS: LACTATED RINGERS 1,000 ML 150 ML IV CONT (11:41)
--- NOTE | 2023-04-02 12:54 | WPDANESEPPF ---
Anes - Initial Pre Proc Eval Procedure: Operation Date: 04/02/23 13:00 Proposed Procedures p Screening Colonoscopy - Jace Nelson MD Date/Time: 04/02/23 12:54 Surgeon: Jace Nelson MD Pre Op Diagnosis: neoplasm screening Patient Data Age: 68 Gender: F Height: 1.65 m Weight: 69.1 kg Last Vital Signs Temp 97.2 F L 04/02/23 11:24 Pulse 80 04/02/23 11:24 Resp 18 04/02/23 11:24 BP 124/89 04/02/23 11:24 Pulse Ox 100 04/02/23 11:24 O2 Del Method Room Air 04/02/23 11:24 Allergies Allergy/AdvReac Type Severity Reaction Status Date / Time hydromorphone Allergy Intermediate Confusion Verified 04/02/23 11:23 Home Medications Medication Instructions Recorded Confirmed Type cholecalciferol (vitamin D3) 50 2,000 unit PO DAILY 10/03/19 03/20/23 History mcg (2,000 unit) capsule (Vitamin D3) cyanocobalamin (vitamin B-12) 1,000 mcg PO DAILY 10/03/19 03/20/23 History 1,000 mcg tablet (Vitamin B-12) aspirin 81 mg tablet 81 mg PO DAILY 06/13/21 03/20/23 History alendronate 70 mg tablet (Fosamax) 70 mg PO WEEKLY #14 tabs 11/21/22 03/20/23 Rx atorvastatin 20 mg tablet See Rx Instructions .Route 11/21/22 03/20/23 Rx .COMPLEX #90 tabs losartan 100 mg tablet 100 mg PO DAILY #90 tabs 11/21/22 03/20/23 Rx metoprolol succinate 25 mg See Rx Instructions .Route 11/21/22 03/20/23 Rx tablet,extended release 24 hr .COMPLEX #90 tabs polysaccharide iron complex 150 mg See Rx Instructions .Route 11/21/22 03/20/23 Rx iron capsule .COMPLEX #30 caps levothyroxine 25 mcg tablet See Rx Instructions .Route 12/11/22 04/02/23 Rx .COMPLEX #90 tabs pantoprazole 40 mg tablet,delayed See Rx Instructions .Route 02/09/23 03/20/23 Rx release .COMPLEX #90 tabs duloxetine 60 mg capsule,delayed See Rx Instructions .Route 03/09/23 03/20/23 Rx release .COMPLEX #180 caps Patient hx anesthesia problems: none Family hx anesthesia problems: none Results Review: All pre-operative results and documents have been reviewed as part of the pre-operative evaluation. [facility] Past Medical History Medical History Bilateral carotid bruits CVA (cerebral vascular accident) X3 CVA, old, dysarthria Depression GERD (gastroesophageal reflux disease) HLD (hyperlipidemia) HTN (hypertension) Hyperglycemia Hypothyroidism (acquired) Hypothyroidism (acquired) Insomnia Insomnia Mixed hyperlipidemia Non Hodgkin's lymphoma Obese Post-menopausal Sarcoidosis Sarcoidosis Sarcoidosis of central nervous system Tachycardia Vitamin D deficiency Vitamin D deficiency Surgical History Surgical History History of cholecystectomy History of gastric bypass Family History Family History Father Family history of cardiovascular disease, Onset Age: 78 Mother Carcinoma of colon, Onset Age: 41 Social History Social History Social History: Primary care physician: Dr. Vicky Louise Code status: full code healthcare power of claim attorney: Chad Beard Smoking status: Never smoker Second hand tobacco smoke exposure: Yes Alcohol intake: never Substance use: never Substance use type: does not use Living arrangements: alone Additional living arrangements comments: She is and lives alone. Her daughter comes and checks on her frequently. She ambulates with a walker. 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
[2023-04-02 13:08] VITALS: BP 114/71; PULSE 85; RESP 19; O2SAT 98
[2023-04-02 13:18] VITALS: BP 116/60; PULSE 78; RESP 22; O2SAT 100
[2023-04-02 13:28] VITALS: BP 114/69; PULSE 80; RESP 16; O2SAT 97
== END 2023-04-02 13:41 | disposition home or self-care (01) ==
PROVIDERS: PCP Family Medicine; Visit Provider Internal Medicine Gastroenterology
PROC: 0DJD8ZZ Inspection of Lower Intestinal Tract, Via Natural or Artificial Opening Endoscopic (ICD-10-PCS; CPT 45378; principal; 2023-04-02 13:00)
DX: Z12.11 Encounter for screening for malignant neoplasm of colon (principal); C21.1 Malignant neoplasm of anal canal; K62.6 Ulcer of anus and rectum; K57.30 Diverticulosis of large intestine without perforation or abscess without bleeding; I10 Essential (primary) hypertension; E78.5 Hyperlipidemia, unspecified; E03.9 Hypothyroidism, unspecified; K21.9 Gastro-esophageal reflux disease without esophagitis; I69.320 Aphasia following cerebral infarction; E78.2 Mixed hyperlipidemia; Z85.72 Personal history of non-Hodgkin lymphomas; F32.A Depression, unspecified; E55.9 Vitamin D deficiency, unspecified; Z98.84 Bariatric surgery status; Z79.82 Long term (current) use of aspirin; Z86.718 Personal history of other venous thrombosis and embolism
CPT/HCPCS: 45380; 88305; 88342; J2704; J7120

== ENCOUNTER 2023-04-08 18:04 | Inpatient (IN) | payer MEDICARE, SELFPAY ==
[2023-04-08] VITALS (21 sets, daily range): BP systolic 120–143; BP diastolic 73–86; PULSE 64–99; RESP 12–24; TEMP 36.4–36.6; O2SAT 96–100; BMI 26.3
--- NOTE | ~2023-04-08 | MR_ITS ---
EXAMINATION: MR brain/brain stem wo con DATE: 04/09/2023 12:05 INDICATION: Stroke. TECHNIQUE: Magnetic resonance imaging (MRI) of the brain and brainstem was performed without intraven ous contrast. COMPARISON: Head CT 04/08/2023 FINDINGS: There is an old infarct in left frontal lobe and left insula. Susceptibility artifact in th is area may be old blood products or calcifications. There are acute infarcts in posterior right fron chanda lobe. There is a small acute infarct in right temporal lobe. There are old infarcts in the cerebe llum bilaterally. There are old infarcts involving the bilateral basal ganglia. There are scattered a reas of nonspecific increased T2-weighted signal intensity in the cerebral white matter and mer. The re is no abnormal mass lesion. The ventricles are normal in size. There are likely changes of ocular lens replacement surgeries. The paranasal sinuses are clear. The mastoid air cells are normal. IMPRESSION: 1. Acute infarcts involving the right frontal and temporal lobes. 2. Old infarcts involving the left frontal lobe, left insula, bilateral basal ganglia, and bilateral cerebellum. 3. Mild nonspecific cerebral white matter disease and pontine disease, which likely represents chroni c small vessel ischemic disease. Reviewed, dictated and finalized at location A. IMPRESSION: 1. Acute infarcts involving the right frontal and temporal lobes. 2. Old infarcts involving the left frontal lobe, left insula, bilateral basal g anglia, and bilateral cerebellum. 3. Mild nonspecific cerebral white matter disease and pontine disease, which chucky herrera represents chronic small vessel ischemic disease.
--- NOTE | ~2023-04-08 | CT_ITS ---
EXAMINATION: CT brain wo con DATE: 04/08/2023 18:15 INDICATION: CVA . TECHNIQUE: Computed tomography (CT) of the head was performed without intravenous contrast. The mA wa s adjusted according to patient size. Iterative reconstruction technique was employed. The dose-lengt h product was 605.33 mGy-cm. COMPARISON: 06/12/2021. FINDINGS: No acute intracranial hemorrhage or extra-axial fluid collection. No hydrocephalus, mass, or herniation. No acute ischemic infarct. Unremarkable dural venous sinus attenuation. No acute osseous abnormality. Small volume left mastoid fluid, the remaining aerated spaces are clear. Mild atrophy and chronic white matter change. Chronic left frontotemporal and bilateral cerebellar en cephalomalacia, without interval progression. Old lacunar infarcts in the right basal ganglia. Athero sclerotic intracranial calcification. Bilateral lens replacements. IMPRESSION: No acute intracranial process. Results reported telephonically to Dr. Mederos by Dr. Ruiz at 6:22 PM on 04/08/2023. Reviewed, dictated and finalized at location K. IMPRESSION: No acute intracranial process. Results reported telephonically to Dr. Mederos by Dr. Ruiz at 6:22 PM on 03/20.
--- NOTE | ~2023-04-08 | CT_ITS ---
EXAMINATION: CTA brain carotid DATE: 04/08/2023 19:45 INDICATION: CVA TECHNIQUE: Computed tomographic angiography (CTA) of the head was performed with 100 mL Omnipaque-350 intravenous contrast. Automated exposure control and iterative reconstruction technique were employe d. The dose-length product was 1014.01 mGy-cm. Maximum intensity projection and volume rendered 3D-re constructions were created by the technologist on a separate workstation. COMPARISON: CT brain, same date. FINDINGS: CTA HEAD: No large vessel occlusion, aneurysm, high flow vascular malformation, nidus or extravasation. Reduced flow in the left M2 and more distal branches in the left hemisphere, within the region of left front otemporal encephalomalacia. Persistent bilateral origins of the posterior cerebral arteries. Pa tent cerebral veins. CTA NECK: Aortic arch and proximal great vessels: Mild arch ectasia and atherosclerotic calcifications at the v isualized aortic arch and proximal great vessels. Right common carotid, carotid bifurcation, and internal carotid artery: Minimal calcified plaque at t he bifurcation.There is 0% stenosis of the proximal right internal carotid artery relative to normal distal artery lumen diameter (NASCET criteria). Left common carotid, carotid bifurcation, and internal carotid artery: Minimal calcified plaque at th e bifurcation.There is 0% stenosis of the proximal left internal carotid artery relative to normal di stal artery lumen diameter (NASCET criteria). Vertebral arteries: No significant plaque or stenosis. Right vertebral artery is dominant, Other findings: None. IMPRESSION: No large vessel occlusion. No significant carotid or vertebral artery stenosis. Reviewed, dictated and finalized at location K.
--- NOTE | 2023-04-08 18:11 | ECG_ITS ---
Measurements Intervals [place] Rate: 82 P: 34 NH: 177 QRS: -12 QRSD: 92 T: 29 QT: 365 QTc: 428 Interpretive Statements SINUS RHYTHM VOLTAGE CRITERIA FOR LVH NONSPECIFIC T-WAVE ABNORMALITY- INFERIOR LEADS BASELINE ARTIFACT- I, II, AVR, V5 BORDERLINE ECG COMPARED TO ECG 06/12/2021 21:32:01 NO SIGNIFICANT CHANGES Electronically Signed On 04-08-2023 22:03:16 CDT by René Lees D.O.
--- NOTE | 2023-04-08 18:14 | ED.NEUROSD ---
HPI - Neuro Symptoms/Deficit General Chief Complaint: Suspected CVA Stated Complaint: slurred speech Time Seen by Provider: 04/08/23 18:09 History of Present Illness HPI Narrative: 68-year-old female present to ED for evaluation of slurred speech that worsened approximately 30 minutes ago. Patient does have prior history of strokes. When patient was evaluated at the stroke stop patient felt that her speech was similar to her baseline. Patient does have prior history of strokes and 2015 and 2019. Patient has persistent speech deficit from her stroke in 2015. Patient had been on Xarelto and aspirin with your Xarelto has been stopped. Patient had a colonoscopy by Dr. Nelson and patient had been told to stop her aspirin. Patient had been off her aspirin for approximately 1 week. Patient was supposed to start taking her aspirin tomorrow. Related Data Home Medications Medication Instructions Recorded Confirmed cholecalciferol (vitamin D3) 50 2,000 unit PO DAILY 10/03/19 03/20/23 mcg (2,000 unit) capsule (Vitamin D3) cyanocobalamin (vitamin B-12) 1,000 mcg PO DAILY 10/03/19 03/20/23 1,000 mcg tablet (Vitamin B-12) aspirin 81 mg tablet 81 mg PO DAILY 06/13/21 03/20/23 Allergies Allergy/AdvReac Type Severity Reaction Status Date / Time hydromorphone Allergy Intermediate Confusion Verified 04/02/23 11:23 Review of Systems Review of Systems: All systems reviewed & are unremarkable except as noted in HPI and below PMFSH Past Medical History Medical History Bilateral carotid bruits CVA (cerebral vascular accident) X3 CVA, old, dysarthria Depression GERD (gastroesophageal reflux disease) HLD (hyperlipidemia) HTN (hypertension) Hyperglycemia Hypothyroidism (acquired) Hypothyroidism (acquired) Insomnia Insomnia Mixed hyperlipidemia Non Hodgkin's lymphoma Obese Post-menopausal Sarcoidosis Sarcoidosis Sarcoidosis of central nervous system Tachycardia Vitamin D deficiency Vitamin D deficiency Surgical History Surgical History History of cholecystectomy History of gastric bypass Family History Family History Father Family history of cardiovascular disease, Onset Age: 78 Mother Carcinoma of colon, Onset Age: 41 Social History Social History Social History: Primary care physician: Dr. Vicky Louise Code status: full code healthcare power of civil rights attorney: Chad Beard Smoking status: Never smoker Second hand tobacco smoke exposure: Yes Alcohol intake: never Substance use: never Substance use type: does not use Living arrangements: alone Additional living arrangements comments: She is and lives alone. Her daughter comes and checks on her frequently. She ambulates with a walker. 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 Gender identity (if verbalized by the patient): Female Sexual Orientation (if Verbalized by the Patient): Straight or Heterosexual Spiritual care concerns: No Exam Narrative: APPEARANCE: Well appearing, no pain, no distress, well-nourished. HEAD: normocephalic, atraumatic. EYES: PERRLA/EOMI, conjunctivae clear. NOSE: Normal no drainage NECK: Supple. No adenopathy, no masses. RESPIRATORY: Airway patent, respirations nonlabored. Clear to auscultation bilaterally, no rales, rhonchi, wheezing. CARDIOVASCULAR: Regular rate and rhythm without murmurs rubs or gallops. ABDOMINAL: Soft, nontender, nondistended, normal bowel sounds MUSCULOSKELETAL: Moves all extremities. Strength/ROM intact, No edema, No calf tenderness. NEURO: Alert. Left-sided facial droop that family is unsure if this is new or not SKIN: Warm, dry. Normal Color Course Course Emergency Course:
[2023-04-08 18:39] LABS: Basophils Percent Auto 0.5 % (0.2-1.2); Eosinophils Absolute Auto 0.2 K/mm3 (0-0.3); Hematocrit 39.7 % (37.0-47.0); Hemoglobin 12.7 g/dL (12.0-15.0); Immature Granulocyte Absolute 0.03 K/mm3 (0.00-0.031); Immature Granulocyte Percent A 0.4 % (0-0.5); Lymphocytes Percent Auto 30.5 % (18.3-44.2); Mean Corpuscular Hemoglobin 31.6 pg (26-34); Mean Corpuscular Volume 98.8 fl (80-100); Mean Platelet Volume 10.9 fl (7.4-10.4); Monocytes Absolute Auto 0.5 K/mm3 (0.1-0.6); Monocytes Percent Auto 6.3 % (2.6-8.5); Neutrophils Absolute Auto 5.1 K/mm3 (1.3-6.7); Neutrophils Percent Auto 60.3 % (45.5-73.1); Platelet Count Result 163 k/mm3 (150-375); Red Blood Count 4.02 M/mm3 (4.2-5.4); White Blood Count 8.5 K/mm3 (4.5-10.0)
[2023-04-08 18:49] LABS: Prothrombin Time 13.6 Seconds (11.1-14.7)
[2023-04-08 18:50] LABS: Alanine Aminotransferase 25 U/L (6-35); Alkaline Phosphatase 102 U/L (38-126); Anion Gap 7 mmol/L (8-16); Aspartate Amino Transferase 40 U/L (14-36); Bilirubin,Total 0.5 mg/dL (0.2-1.3); Blood Urea Nitrogen 18 mg/dL (7-17); Calcium 9.1 mg/dL (8.4-10.2); Carbon Dioxide 28 mmol/L (22-30); Chloride 108 mmol/L (98-107); Estimated CRCL calculation 43 ml/min; Estimated Glomerular Filt Rate 49; Glucose 76 mg/dL (65-110); Partial Thromboplastin Time 27.6 SECONDS (22.3-36.8); Potassium 3.4 mmol/L (3.4-5.0); Sodium 143 mmol/L (137-145)
[2023-04-08] MEDS: ASPIRIN 81 MG CHEWABLE TABLET 324 MG PO (21:20)
--- NOTE | 2023-04-08 21:32 | PM.IMHP ---
H&P: HPI History of Present Illness Date/Time: 04/08/23 21:32 Chief Complaint: speech disturbance Narrative: This is a 68-year-old female with past medical history significant for stroke, GERD, hypertension, hypothyroidism, recently diagnosed with rectal CA. patient was brought to the emergency room for evaluation after she had an episode of speech disturbance and altered mental status which had resolved by the time the patient arrived to the emergency room. Patient denies any vision changes, any focal weakness any sensorineural changes, no headache, she denies any fevers, rigors, chills, nausea, vomiting has had changes in her bowel habitus has had pencil thin stools periods of alternating with constipation and diarrhea. preliminary workup was significant for a urinalysis showed numerous WBCs present a CT of the head was significant for: EXAMINATION: CT brain wo con DATE: 04/08/2023 18:15 INDICATION: CVA . TECHNIQUE: Computed tomography (CT) of the head was performed without intravenous contrast. The mA was adjusted according to patient size. Iterative reconstruction technique was employed. The dose-length product was 605.33 mGy-cm. COMPARISON: 06/12/2021. FINDINGS: No acute intracranial hemorrhage or extra-axial fluid collection. No hydrocephalus, mass, or herniation. No acute ischemic infarct. Unremarkable dural venous sinus attenuation. No acute osseous abnormality. Small volume left mastoid fluid, the remaining aerated spaces are clear. Mild atrophy and chronic white matter change. Chronic left frontotemporal and bilateral cerebellar encephalomalacia, without interval progression. Old lacunar infarcts in the right basal ganglia. Atherosclerotic intracranial calcification. Bilateral lens replacements. IMPRESSION:? No acute intracranial process. EXAMINATION: CTA brain carotid DATE: 04/08/2023 19:45 INDICATION: CVA TECHNIQUE: Computed tomographic angiography (CTA) of the head was performed with 100 mL Omnipaque-350 intravenous contrast. Automated exposure control and iterative reconstruction technique were employed. The dose-length product was 1014.01 mGy-cm. Maximum intensity projection and volume rendered 3D-reconstructions were created by the technologist on a separate workstation. COMPARISON: CT brain, same date. FINDINGS: CTA HEAD: No large vessel occlusion, aneurysm, high flow vascular malformation, nidus or extravasation. Reduced flow in the left M2 and more distal branches in the left hemisphere, within the region of left frontotemporal encephalomalacia. Persistent bilateral origins of the posterior cerebral arteries. Patent cerebral veins. CTA NECK: Aortic arch and proximal great vessels: Mild arch ectasia and atherosclerotic calcifications at the visualized aortic arch and proximal great vessels. Right common carotid, carotid bifurcation, and internal carotid artery: Minimal calcified plaque at the bifurcation.There is 0% stenosis of the proximal right internal carotid artery relative to normal distal artery lumen diameter (NASCET criteria).? Left common carotid, carotid bifurcation, and internal carotid artery: Minimal calcified plaque at the bifurcation.There is 0% stenosis of the proximal left internal carotid artery relative to normal distal artery lumen diameter (NASCET criteria). Vertebral arteries: No significant plaque or stenosis. Right vertebral artery is dominant, Other findings: None. IMPRESSION: No large vessel occlusion. No significant carotid or vertebral artery stenosis. Review of Systems Review of Systems: speech disturbance Constitutional: Constitutional: Denies chills, Denies fatigue, Denies fever(s), Denies frequent falls, Denies malaise, Denies night sweats, Reports poor appetite and Reports weakness Eyes: Eyes: Denies change in vision ENT: Denies dysphagia and Denies odynophagia Cardiovascular: Cardiovascular: Denies chest pain, Denies leg edema, Denies radiati
--- NOTE | 2023-04-08 22:46 | ADMGEN ---
This patient, Pamella Wu, was admitted to Medical Room 340-01. Patient/family oriented to hospital policies and general routines including ID bracelet, bed and alarms, visiting hours, pain management, procedures, bathroom and other care routines, personal items, smoking policy, room service/diet, and visiting hours. Information on how to activate the Rapid Response Team has been discussed. Patient/Family are encouraged to report perceived risks to care and to ask questions if they do not understand what they are told or what they should do.
[2023-04-08 23:38] LABS: Appearance Urine Clear (Clear); Bacteria Urine None Seen /hpf; Bilirubin Urine Negative (Negative); Blood Urine Negative (Negative); Color Urine Yellow (Yellow); Glucose Urine UA Negative (Negative); Ketones Urine Negative (Negative); Leukocyte Esterase Ur 1+ LEU/UL (Negative); Nitrate Urine Negative (Negative); Protein Urine Negative (Negative); RBC Urine 0-2 /hpf (0-2); Squamous Epithelial Cell Urine Occasional /hpf (Few); Urobilinogen Urine 0.2 mg/dL (<2.0)
[2023-04-08 23:46] LABS: Specific Grav Ur 1.068 (1.001-1.035)
[2023-04-08 23:48] LABS: Add Urine Microscopic? YES
[2023-04-09] VITALS (10 sets, daily range): BP systolic 130–142; BP diastolic 52–85; PULSE 62–87; RESP 16–21; TEMP 36.2–36.8; O2SAT 99–100
--- NOTE | 2023-04-09 | ECHO_ITS ---
Patient Info Name: Pamella Wu Age: 68 years : 1955 Gender: Female Ht: 64 in Wt: 153 lbs BSA: 1.79 m2 HR: 85 bpm BP: 142 / 73 mmHg Technical Quality: Fair Exam Date: 04/09/2023 1:36 PM Exam Location: [facility] Pulmonary Exam Room: 340 Patient Status: Inpatient Admit Date: 04/08/2023 Staff Ordering Physician: Vida Morales APRN [employer] Cutter: Armida Vidal RDCS Attending Provider: Enid Hairston MD Referring Physician: Carmen FLOYD; Exam Type: CA echo doppler w bubble study Study Info Indications - STROKE SYMPTOMS Complete two-dimensional, color flow and Doppler transthoracic echocardiogram is performed with agitated saline. Summary 1. Left ventricular chamber dimension is normal. 2. Left ventricular systolic function is normal, estimated at 60-65%. 3. The left ventricular diastolic function is grade I diastolic dysfunction. 4. E/e' 12 is mildly elevated. 5. Left atrial chamber dimension is moderately enlarged. 6. The mitral valve has mildly calcified annulus. 7. There is trace mitral valve regurgitation. 8. There is trace tricuspid valve regurgitation. 9. No pulmonary hypertension, estimated pulmonary arterial systolic pressure is 29 mmHg. Left Ventricle E/e' 12 is mildly elevated. Left ventricular chamber dimension is normal. Left ventricular systolic function is normal, estimated at 60-65%. The left ventricular diastolic function is grade I diastolic dysfunction. Right Ventricle Right ventricular systolic function is normal and with normal TAPSE 2.6 cm. Right ventricular chamber dimension is normal. Left Atria Left atrial chamber dimension is moderately enlarged. Right Atria Right atrial chamber dimension is normal. Atrial Septum Agitated saline injection with and without valsalva maneuver opacified right side cardiac chambers without shunt to left side cardiac chambers. Intact interatrial septum visualized by 2D, Doppler and agitated saline imaging. Aortic Valve The aortic valve is trileaflet. There is no aortic valve stenosis. There is no aortic valve regurgitation. Pulmonic Valve There is no pulmonic regurgitation. Mitral Valve The mitral valve has mildly calcified annulus. There is no mitral valve stenosis. There is trace mitral valve regurgitation. Tricuspid Valve There is trace tricuspid valve regurgitation. No pulmonary hypertension, estimated pulmonary arterial systolic pressure is 29 mmHg. Pericardium/Pleural There is no pericardial effusion. Inferior Vena Cava Normal inferior vena cava with >50% collapse upon inspiration consistent with normal right atrial pressure, 5 mmHg. Aorta The aortic root size at the sinus of Valsalva is normal. Left Ventricular Outflow Tract Name Value Normal LVOT 2D LVOT Diameter 2.0 cm LVOT Doppler LVOT Peak Gradient 4 mmHg LVOT Mean Gradient 2 mmHg LVOT VTI 21 cm LVOT VTI/AV VTI Ratio 0.8 LVOT Stroke Volume 65 ml LVOT CO 14.1 l/min LVOT CI 7.9 l/min/m2 Pulmonic Valve
[2023-04-09] MEDS: LEVOTHYROXINE SODIUM 25 MCG TABLET BY MOUTH (06:01)
--- NOTE | 2023-04-09 08:29 | PM.IMPN ---
Progress Note: A&P Assessment and Plan (1) CVA (cerebral vascular accident): Code(s): I63.9 - Cerebral infarction, unspecified Status: Acute Assessment and Plan: Patient presented to the hospital with speech disturbance. Symptoms resolved prior to the ED. patient admitted for stroke workup. CT head without acute disease CTA head and neck without stenosis are large vessel occlusion Brain MRI shows acute infarcts involving the right frontal and temporal lobes; old infarcts involving the left frontal, left insula, bilateral basal ganglia, bilateral cerebrum; as well as mild nonspecific cerebral white matter disease Transthoracic echocardiogram pending LDL 48 in November of 2022, however given acute infarcts will increase patient to high-dose statin, Lipitor 40 mg p.o. daily Continue blood pressure control TSH within normal limits Neurology was consulted and appreciate recommendations Continue aspirin 81 mg daily and will defer to Neurology for initiation of Plavix or dull lack as patient may have been on Xarelto at some point (2) UTI (urinary tract infection): Code(s): N39.0 - Urinary tract infection, site not specified Status: Acute Assessment and Plan: UA positive for 1+ leukocytes, wbc's 11-20 and patient does endorse urinary frequency and hesitancy Started on rocephin 1 g Q 24 hours, 1st dose 04/09 Adjust antibiotics per urine culture (3) Rectal carcinoma: Code(s): C20 - Malignant neoplasm of rectum Status: Acute Assessment and Plan: Patient recently diagnosed with rectal cancer. 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 Monitor neuro status. (7) GERD (gastroesophageal reflux disease): Qualifiers: Esophagitis presence: esophagitis presence not specified Qualified Code(s): K21.9 - Gastro-esophageal reflux disease without esophagitis Code(s): K21.9 - Gastro-esophageal reflux disease without esophagitis Status: Chronic Assessment and Plan: Continue PPI therapy Plan Code status: Full code Discharge disposition: Patient is from home, PT OT consulted and patient is at baseline. Antibiotic: Day 1 IV Rocephin Time Spent With Patient Time with patient: 25 - 35 minutes Subjective Date/time seen: 04/09/23 08:29 Interval history: She reports speaking inappropriate words that were somewhat jumbled prompting her ED visit. She states this lasted approximately 3 minutes. This has resolved and she reports her speech changes and right arm weakness is chronic from prior strokes. She endorses urinary hesitancy and frequency for the past 2 days. No chest pain, palpitations, shortness of breath, cough, abd pain, N/V/D, or pain with urination. She denies gait changes, paresthesia or paralysis. Review of Systems Review of Systems: All systems reviewed & are unremarkable except as noted in HPI and below Exam Narrative: General: No acute distress.? Sitting up in the chair. Nontoxic appearing. Mental Status/Psych: Awake, alert and oriented x4 with clear speech. Pleasant and cooperative. Skin: Skin fair, warm, dry and intact without rashes or lesions. No open wounds. Good turgor.? HEENT: Normocephalic. Sclera is non-icteric. PERRL. EOM intact without nystagmus. Oral mucosa pink and moist. Grossly normal hearing. Neck: No JVD
[2023-04-09] MEDS: POLYSACCHARIDE IRON COMPLEX 150 MG CAPSULE BY MOUTH (09:32)
[2023-04-09] MEDS: ASPIRIN 81 MG CHEWABLE TABLET PO (09:32)
[2023-04-09] MEDS: METOPROLOL SUCCINATE EXT REL 25 MG TABCR BY MOUTH (09:33)
[2023-04-09] MEDS: CYANOCOBALAMIN 1,000 MCG TABLET 1000 MCG PO (09:34)
[2023-04-09] MEDS: DULoxetine HCL 60 MG CAPSULE.DR BY MOUTH ×2 (09:34→21:31)
[2023-04-09] MEDS: CHOLECALCIFEROL 1,000 UNITS TABLET 2000 UNITS PO (09:34)
[2023-04-09] MEDS: PANTOPRAZOLE 40 MG TABLET BY MOUTH (09:34)
--- NOTE | 2023-04-09 10:08 | WPDNEURCNPN ---
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): Code(s): I69.321 - Dysphasia following cerebral infarction Status: Chronic (4) HTN (hypertension): Qualifiers: Hypertension type: essential hypertension Qualified Code(s): I10 - Essential (primary) hypertension Code(s): I10 - Essential (primary) hypertension Status: Acute (5) HLD (hyperlipidemia): Qualifiers: Hyperlipidemia type: mixed hyperlipidemia Qualified Code(s): E78.2 - Mixed hyperlipidemia Code(s): E78.5 - Hyperlipidemia, unspecified Status: Acute Plan Grant Wu is a 68 year old female with a history of prior stroke, HTN, HLD, hypothyroidism, sarcoidosis presenting due to worsening speech. She was found to have acute R frontotemporal infarct, likely secondary to R M2 stenosis. She has been off of aspirin for the past week as well. - Continue Aspirin 81mg daily, add Plavix x 3 months; then aspirin monotherapy - Continue Lipitor at current dose - Ok to discharge Consult date: 04/10/23 Reason for consult: Concern for TIA HPI: Pamella Wu is a 68 year old female with a history of prior stroke, HTN, HLD, hypothyroidism, sarcoidosis presenting due to worsening speech. Patient has a history of baseline dysarthria secondary to prior stroke. She presented to [place] ED due to transient worsening of her speech for about 30 minutes. By the time she presented to the ED, her speech was back to baseline. Of note, patient's Aspirin was being held over the past week due to recent colonoscopy, with plans to resume it today. Patient did not have any other new focal symptoms. Her CT head on presentation showed no acute process. CA brain/carotid showed no evidence of LVO but did show reduced flow in the left M2 and more distal branches of the left hemisphere within the region of left frontotemporal encephalomalacia. In the ED, her UA was concerning for possible UTI. She was started on Rocephin and subsequently admitted. Urine culture is pending. She has been restarted on aspirin. She is not on a statin. All of her LDL levels in the past year have been <70. Her blood pressure has been mostly in the 140s systolic since admission. MRI brain showed R frontotemporal infarct (acute). Patient denies any new symptoms. Review of Systems Constitutional: Constitutional: Denies chills, Denies fever(s) and Denies weight loss Eyes: Eyes: Denies diplopia and Denies loss of vision ENT: Denies dizziness, Denies hearing loss and Denies tinnitus Cardiovascular: Cardiovascular: Denies chest pain, Denies syncope and Denies dyspnea Respiratory: Respiratory: Denies cough, Denies dyspnea and Denies wheezing Gastrointestinal: Gastrointestinal: Denies abdominal pain, Denies change in bowel habits and Denies vomiting Genitourinary: Genitourinary: Denies urinary incontinence Musculoskeletal: Musculoskeletal: Denies arthralgias and Denies joint swelling Integumentary/Breasts: Skin/Breast: Denies new lesions and Denies rash Neurologic: Reports as per HPI, Denies dizziness, Denies syncope and Denies loss of vision Psychiatric: Psychiatric: Denies anxiety and Denies depression Endocrine: Endocrine: Denies cold intolerance and Denies heat intolerance Hematologic/Lymphatic: Hematologic/Lymphatic: Denies easy bleeding and Denies easy bruising Allergic/Immunologic: Allergic/Immunologic: Denies no additional allergic/immunologic complaints and Denies wheezing PMFSH Past Medical History Medical History Bilateral carotid bruits CVA (cerebral vascular accident) X3 CVA, old, dysarthria Depression GERD (gastroesophag
[2023-04-09 10:14] LABS: Folic Acid 7.9 ng/mL (2.76->20); Vitamin B12 > 1000.0 pg/mL (239-931)
[2023-04-09 11:06] LABS: Glucose Point of Care 165 mg/dl (65-105)
[2023-04-10] VITALS (8 sets, daily range): BP systolic 143–154; BP diastolic 74; PULSE 65–84; RESP 16–21; TEMP 36.4; O2SAT 100
[2023-04-10] MEDS: LEVOTHYROXINE SODIUM 25 MCG TABLET BY MOUTH (06:00)
[2023-04-10 06:07] LABS: Basophils Percent Auto 0.5 % (0.2-1.2); Eosinophils Absolute Auto 0.2 K/mm3 (0-0.3); Eosinophils Percent Auto 2.5 % (0-4.4); Hematocrit 38.9 % (37.0-47.0); Hemoglobin 12.5 g/dL (12.0-15.0); Immature Granulocyte Absolute 0.04 K/mm3 (0.00-0.031); Immature Granulocyte Percent A 0.5 % (0-0.5); Lymphocytes Absolute Auto 2.32 K/mm3 (0.9-3.2); Lymphocytes Percent Auto 28.8 % (18.3-44.2); Mean Corpuscular HGB Conc 32.1 g/dl (32-36); Mean Corpuscular Hemoglobin 31.6 pg (26-34); Mean Corpuscular Volume 98.5 fl (80-100); Monocytes Absolute Auto 0.5 K/mm3 (0.1-0.6); Monocytes Percent Auto 6.7 % (2.6-8.5); Neutrophils Absolute Auto 4.9 K/mm3 (1.3-6.7); Platelet Count Result 142 k/mm3 (150-375); Red Blood Count 3.95 M/mm3 (4.2-5.4); Red Cell Distribution Width 13.5 % (11.5-14.5); White Blood Count 8.1 K/mm3 (4.5-10.0)
[2023-04-10 06:24] LABS: Anion Gap 5 mmol/L (8-16); Blood Urea Nitrogen 12 mg/dL (7-17); Carbon Dioxide 33 mmol/L (22-30); Chloride 104 mmol/L (98-107); Estimated CRCL calculation 56 ml/min; Estimated Glomerular Filt Rate > 60; Glucose 89 mg/dL (65-110); Potassium 3.4 mmol/L (3.4-5.0); Sodium 142 mmol/L (137-145)
[2023-04-10] MEDS: DULoxetine HCL 60 MG CAPSULE.DR BY MOUTH (07:57)
[2023-04-10] MEDS: ATORVASTATIN 40 MG TABLET PO (07:57)
[2023-04-10] MEDS: CYANOCOBALAMIN 1,000 MCG TABLET 1000 MCG PO (07:57)
[2023-04-10] MEDS: CHOLECALCIFEROL 1,000 UNITS TABLET 2000 UNITS PO (07:57)
[2023-04-10] MEDS: METOPROLOL SUCCINATE EXT REL 25 MG TABCR BY MOUTH (07:58)
[2023-04-10] MEDS: POLYSACCHARIDE IRON COMPLEX 150 MG CAPSULE BY MOUTH (07:58)
[2023-04-10] MEDS: PANTOPRAZOLE 40 MG TABLET BY MOUTH (07:58)
[2023-04-10] MEDS: ASPIRIN 81 MG CHEWABLE TABLET PO (07:58)
--- NOTE | 2023-04-10 13:21 | PM.DS ---
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 Symptoms resolved prior to the ED. patient admitted for stroke workup. CT head without acute disease CTA head and neck without stenosis are large vessel occlusion Brain MRI shows acute infarcts involving the right frontal and temporal lobes; old infarcts involving the left frontal, left insula, bilateral basal ganglia, bilateral cerebrum; as well as mild nonspecific cerebral white matter disease Transthoracic echocardiogram without PFO/ASD LDL 48 in November of 2022, however given acute infarcts will increase patient to high-dose statin, Lipitor 40 mg p.o. daily Continue blood pressure control TSH within normal limits Neurology was consulted and appreciate recommendations Continue aspirin 81 mg daily. Patient started on Plavix 75 mg daily x 3 months, per neurology. Patient reported Xarelto use was following previous stroke, but denied h/o afib as contributing. (2) UTI (urinary tract infection): Qualifiers: Urinary tract infection type: site unspecified Hematuria presence: without hematuria Qualified Code(s): N39.0 - Urinary tract infection, site not specified Code(s): N39.0 - Urinary tract infection, site not specified Status: Acute Assessment and Plan: UA positive for 1+ leukocytes, wbc's 11-20 and patient does endorse urinary frequency and hesitancy Started on rocephin 1 g Q 24 hours, 1st dose 04/09 and 04/10/23 urine culture without growth, however patient c/o urinary frequency. Continue cefdinir 300 mg PO BID x 3 more days, total 5 day course. (3) Rectal carcinoma: Code(s): C20 - Malignant neoplasm of rectum Status: Acute Assessment and Plan: Patient recently diagnosed with rectal cancer. Follow-up in outpatient setting with General surgery. 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 Aspiration precaution (5) MDD (major depressive disorder), recurrent episode, moderate: Code(s): F33.1 - Major depressive disorder, recurrent, moderate Status: Chronic Assessment and Plan: continue duloxetine, not in acute exacerbation (6) Aphasia S/P CVA: Code(s): I69.320 - Aphasia following cerebral infarction Status: Chronic Assessment and Plan: supportive care. Following previous stroke Monitor neuro status. (7) GERD (gastroesophageal reflux disease): Qualifiers: Esophagitis presence: esophagitis presence not specified Qualified Code(s): K21.9 - Gastro-esophageal reflux disease without esophagitis Code(s): K21.9 - Gastro-esophageal reflux disease without esophagitis Status: Chronic Assessment and Plan: Continue PPI therapy DS: Summary Hospital Course Reason for hospitalization: speech disturbance Hospital Course: Patient is a 68-year-old female with past medical history significant for stroke, GERD, hypertension, hypothyroidism and recently diagnosed with rectal CA. Patient was brought to the emergency room for evaluation after she had an episode of speech disturbance and altered mental status lasting appr
[2023-04-10] MEDS: CLOPIDOGREL BISULFATE 75 MG TABLET PO (13:49)
== END 2023-04-10 18:20 | disposition home or self-care (01) | DRG 65 ==
LOC: ANHED 19:04 → ANH3MED 21:47
PROVIDERS: Admitting Provider Internal Medicine; Emergency Provider Emergency Medicine; PCP Family Medicine; Visit Provider Nurse Practitioner Family
DX: I63.9 Cerebral infarction, unspecified (principal); C20 Malignant neoplasm of rectum; N39.0 Urinary tract infection, site not specified; F33.1 Major depressive disorder, recurrent, moderate; I69.391 Dysphagia following cerebral infarction; R13.10 Dysphagia, unspecified; I69.322 Dysarthria following cerebral infarction; I69.320 Aphasia following cerebral infarction; K21.9 Gastro-esophageal reflux disease without esophagitis; I10 Essential (primary) hypertension; E03.9 Hypothyroidism, unspecified; R47.9 Unspecified speech disturbances; R41.82 Altered mental status, unspecified; E78.5 Hyperlipidemia, unspecified; D86.89 Sarcoidosis of other sites; Z79.82 Long term (current) use of aspirin; Z85.72 Personal history of non-Hodgkin lymphomas; Z90.49 Acquired absence of other specified parts of digestive tract; Z98.84 Bariatric surgery status
CPT/HCPCS: 36415; 70450; 70496; 70498; 70551; 80048; 80053; 81001; 82607; 82746; 82948; 85025; 85610; 85730; 87086; 93005; 93306; 96365; 96375; 97161; 97165; 99285; A9270; G0378; J0696; Q9967